=== PATIENT | female | born 1955 | race Caucasian/White ===

== ENCOUNTER 2018-10-16 23:53 | Inpatient (IN) | payer MEDICAID, OTHER ==
[~2018-10-16] VITALS: Ht 157.5 cm; Wt 67.6 kg
[2018-10-16 23:58] VITALS: BP_SYST 123
[2018-10-17] VITALS (12 sets, daily range): BP systolic 106–126
[2018-10-17] MEDS ORDERED: DILTIAZEM HCL 25 MG/5 ML VIAL IVP ONE (01:15)
[2018-10-17 01:44] LABS: BILIRUBIN,URINE NEGATIVE (NEGATIVE); BLOOD, URINE 1+ (NEGATIVE); CLARITY/URINE CLEAR (CLEAR); COLOR,URINE YELLOW (YELLOW); GLUCOSE,URINE NEGATIVE (NEGATIVE); KETONES,URINE NEGATIVE (NEGATIVE); LEUKOCYTE ESTERASE ,URINE 2+ (NEGATIVE); NITRITE, URINE NEGATIVE (NEGATIVE); PH,URINE 6.5 (5.0-8.0); PROTEIN URINE NEGATIVE (NEGATIVE); UROBILINOGEN,URINE 0.2 (0.2-1.0)
[2018-10-17 01:53] LABS: BACTERIA,URINE FEW /HPF (None Seen)
[2018-10-17 02:00] LABS: EOSINOPHILS # (AUTO) 0.1 K/uL (0.0-0.4); MONOCYTES # (AUTO) 0.4 K/uL (0.0-1.0)
[2018-10-17 02:05] LABS: BASOPHILS % (AUTO) 0.5 % (0.0-2.0); EOSINOPHILS % (AUTO) 1.2 % (0.0-4.0); HEMATOCRIT 43.2 % (36-48); LYMPHOCYTES % (AUTO) 39.7 % (20.5-51.5); MEAN CORPUSCULAR HEMOGLOBIN 32 pg (27-31); MEAN CORPUSCULAR HGB CONC 35 % (32-36); MEAN CORPUSCULAR VOLUME 91 fL (79.0-98.0); MONOCYTES % (AUTO) 5.4 % (1.7-9.3); NEUTROPHILS % (AUTO) 53.2 % (40.0-70.0); PLATELET COUNT (AUTO) 273 K/uL (130-430); RED BLOOD CELL COUNT(AUTO) 4.77 MIL/uL (4.2-6.2); RED CELL DISTRIBUTION WIDTH 13.2 % (9.0-15.0); WHITE BLOOD COUNT (AUTO) 7.6 K/uL (4.8-10.8)
[2018-10-17 02:18] LABS: ANION GAP 11 (5-15); CALCIUM 9.9 mg/dL (8.4-11.0); CHLORIDE 109 mmol/L (98-107); CREATININE 0.65 mg/dL (0.55-1.30); GLUCOSE 113 mg/dL (70-99); POTASSIUM 3.6 mmol/L (3.5-5.1); SODIUM SERUM 145 mmol/L (136-145); UREA NITROGEN, BLOOD 14 mg/dL (8-21)
[2018-10-17 02:33] LABS: ALANINE AMINOTRANSFERASE 36 U/L (12-78); ASPARTATE AMINOTRANSFERASE 26 U/L (10-37); THYROID STIMULATING HORMONE 4.07 uIu/mL (0.36-3.74); TOTAL BILIRUBIN 0.4 mg/dL (0.0-1.0)
[2018-10-17 02:34] LABS: GFR AFRICAN AMERICAN 118 mL/min (>90)
[2018-10-17] MEDS ORDERED: SIMV10TA2 PO (03:47)
[2018-10-17] MEDS ORDERED: DILTIAZEM HCL 125 MG in D5W 100 ML IV ONE ×2 (04:15→06:00)
[2018-10-17] MEDS ORDERED: cefTRIAXone 1 GM in D5W 50 ML IV ONE (05:15)
[2018-10-17] MEDS ORDERED: cefTRIAXone 1 GM VIAL ONE (05:32)
[2018-10-17] MEDS ORDERED: DILTIAZEM HCL 125 MG/25 ML VIAL IV ONE (05:33)
[2018-10-17] MEDS ORDERED: NACL 0.9% 1,000 ML IV SCH (05:40)
[2018-10-17] MEDS ORDERED: MORPHINE 2 MG/ML INJ. SYRINGE IVP PRN (05:45)
[2018-10-17] MEDS ORDERED: ALBUTEROL SULFATE 0.083% 2.5 MG/3 ML VIAL.NEB INH PRN (05:45)
[2018-10-17] MEDS ORDERED: LORazepam 2 MG/ML VIAL IVP PRN (05:45)
[2018-10-17] MEDS ORDERED: cefTRIAXone 1 GM IVPB PREMIX 50 ML IV SCH (05:45)
[2018-10-17] MEDS ORDERED: ACETAMINOPHEN 325 MG TABLET PO PRN (05:45)
[2018-10-17] MEDS ORDERED: ONDANSETRON HCL 4 MG/2 ML VIAL IVP PRN (05:45)
[2018-10-17] MEDS ORDERED: COMMUNICATION ORDER XX ONE (08:45)
[2018-10-17] MEDS ORDERED: METOPROLOL SUCCINATE 25 MG TAB.SR.24H (TOPROL XL) PO SCH (09:00)
[2018-10-17] MEDS ORDERED: ASPIRIN 325 MG TABLET PO SCH (09:00)
[2018-10-17] MEDS ORDERED: LEVOFLOXACIN 500 MG/D5W 100 ML IV SCH (09:15)
[2018-10-17 11:12] LABS: BASOPHILS % (AUTO) 0.3 % (0.0-2.0); NEUTROPHILS # (AUTO) 5.9 K/uL (1.8-7.7)
[2018-10-17 11:17] LABS: EOSINOPHILS % (AUTO) 0.2 % (0.0-4.0); HEMATOCRIT 42.7 % (36-48); HEMOGLOBIN 14.3 g/dL (12.0-16.0); LYMPHOCYTES # (AUTO) 1.6 K/uL (1.0-5.5); LYMPHOCYTES % (AUTO) 20.6 % (20.5-51.5); MEAN CORPUSCULAR HEMOGLOBIN 31 pg (27-31); MEAN CORPUSCULAR HGB CONC 33 % (32-36); MEAN CORPUSCULAR VOLUME 92 fL (79.0-98.0); MONOCYTES # (AUTO) 0.3 K/uL (0.0-1.0); MONOCYTES % (AUTO) 4.3 % (1.7-9.3); NEUTROPHILS % (AUTO) 74.6 % (40.0-70.0); PLATELET COUNT (AUTO) 277 K/uL (130-430); RED BLOOD CELL COUNT(AUTO) 4.67 MIL/uL (4.2-6.2); RED CELL DISTRIBUTION WIDTH 13.8 % (9.0-15.0); WHITE BLOOD COUNT (AUTO) 7.9 K/uL (4.8-10.8)
[2018-10-17 11:34] LABS: ANION GAP 6 (5-15); CALCIUM 9.2 mg/dL (8.4-11.0); CHLORIDE 109 mmol/L (98-107); CREATININE 0.61 mg/dL (0.55-1.30); GLUCOSE 112 mg/dL (70-99); POTASSIUM 4.1 mmol/L (3.5-5.1); SODIUM SERUM 145 mmol/L (136-145); UREA NITROGEN, BLOOD 11 mg/dL (8-21)
[2018-10-17 11:41] LABS: GFR AFRICAN AMERICAN 127 mL/min (>90)
[2018-10-17 11:42] LABS: ALANINE AMINOTRANSFERASE 31 U/L (12-78); ALBUMIN 3.6 g/dL (3.4-4.8); ASPARTATE AMINOTRANSFERASE 23 U/L (10-37); TOTAL BILIRUBIN 0.5 mg/dL (0.0-1.0)
[2018-10-17] MEDS ORDERED: SIMVASTATIN 10 MG TABLET PO SCH (21:00)
== END 2018-10-17 16:38 | disposition home or self-care (01) | DRG 309 ==
LOC: SED 23:53 → SIC 10-17 05:40
PROVIDERS: ADMIT Internal Medicine Hospice and Palliative Medicine; ATTEND Internal Medicine Hospice and Palliative Medicine
DX: I48.0 Paroxysmal atrial fibrillation (principal); N39.0 Urinary tract infection, site not specified; E78.5 Hyperlipidemia, unspecified; Z79.899 Other long term (current) drug therapy; Z82.49 Family history of ischemic heart disease and other diseases of the circulatory system; Z88.0 Allergy status to penicillin; Z88.1 Allergy status to other antibiotic agents
CPT/HCPCS: 36415; 80053; 81000-TC; 84443-TC; 84484; 85025; 87081; 87086; 93005; 93306; 96374; 99285; J0696; J1956; J3490; J7030

== ENCOUNTER 2021-03-27 10:48 | Emergency (ER) | payer OTHER, MEDICARE ==
[~2021-03-27] VITALS: Ht 162.6 cm; Wt 61.2 kg
[~2021-03-27 10:48] MED LIST: SIMV10TA2 PO
[2021-03-27 11:24] VITALS: BP_SYST 124
[2021-03-27 11:55] LABS: BASOPHILS % (AUTO) 0.4 % (0.0-2.0); EOSINOPHILS % (AUTO) 0.4 % (0.0-4.0); HEMATOCRIT 37.9 % (36-48); HEMOGLOBIN 12.7 g/dL (12.0-16.0); LYMPHOCYTES # (AUTO) 1.7 K/uL (1.0-5.5); LYMPHOCYTES % (AUTO) 27.6 % (20.5-51.5); MEAN CORPUSCULAR HEMOGLOBIN 30 pg (27-31); MEAN CORPUSCULAR HGB CONC 34 % (32-36); MEAN CORPUSCULAR VOLUME 90 fL (79.0-98.0); MONOCYTES # (AUTO) 0.3 K/uL (0.0-1.0); MONOCYTES % (AUTO) 4.2 % (1.7-9.3); NEUTROPHILS # (AUTO) 4.2 K/uL (1.8-7.7); NEUTROPHILS % (AUTO) 67.4 % (40.0-70.0); PLATELET COUNT (AUTO) 226 K/uL (130-430); RED BLOOD CELL COUNT(AUTO) 4.23 MIL/uL (4.2-6.2); RED CELL DISTRIBUTION WIDTH 13.4 % (9.0-15.0); WHITE BLOOD COUNT (AUTO) 6.3 K/uL (4.8-10.8)
[2021-03-27 12:22] LABS: CALCIUM 9.2 mg/dL (8.4-11.0); CREATININE 0.62 mg/dL (0.55-1.30)
[2021-03-27 12:30] LABS: ALBUMIN 3.9 g/dL (3.4-4.8); TOTAL BILIRUBIN 0.3 mg/dL (0.0-1.0)
[2021-03-27 13:21] VITALS: BP_SYST 120
[2021-03-27] MEDS ORDERED: IBUPROFEN 600 MG TABLET ONE (19:34)
== END 2021-03-27 13:20 | disposition home or self-care (01) ==
LOC: SED 10:48
DX: S09.90XA Unspecified injury of head, initial encounter (principal); Z88.0 Allergy status to penicillin; Z79.899 Other long term (current) drug therapy; W01.10XA Fall on same level from slipping, tripping and stumbling with subsequent striking against unspecified object, initial encounter; Y93.89 Activity, other specified; Y92.89 Other specified places as the place of occurrence of the external cause; Y99.8 Other external cause status
CPT/HCPCS: 36415; 70450-TC; 76376; 80053; 82550; 84484; 85025; 99284

== ENCOUNTER 2021-07-23 15:05 | Emergency (ER) | payer OTHER, MEDICARE ==
[~2021-07-23] VITALS: Ht 167.6 cm; Wt 66.2 kg
--- NOTE | 2021-07-23 15:20 | NUR ---
Patient to ER bed 07 to gown for evaluation. Side rails up.
--- NOTE | 2021-07-23 15:22 | NUR ---
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 Patient also reports dysuria. Pain is sharp and constant 6/10. Denies any nuasea or vomiting. no other complaints/injuries per patient or as noted. no acute distress noted at this time
--- NOTE | 2021-07-23 15:25 | NUR ---
ER Dr.DELA SHERIFF at bedside examining patient.
[2021-07-23 15:30] VITALS: BP_SYST 140
[2021-07-23] MEDS ORDERED: MORPHINE 4 MG INJ. 4 MG/ML VIAL IVP ONE (15:30)
[2021-07-23] MEDS ORDERED: NACL 0.9% 1,000 ML IV ONE (15:30)
[2021-07-23] MEDS ORDERED: cefTRIAXone 1 GM in D5W 50 ML IV ONE (15:30)
[2021-07-23] MEDS ORDERED: ONDANSETRON HCL 4 MG/2 ML VIAL IVP ONE (15:30)
--- NOTE | 2021-07-23 15:30 | NUR ---
# 20 gauge angiocath placed to LAC. Use of asceptic technique. Opsite placed over site. Blood return noted. Blood AND CULTURES for lab drawn from site. Flushed with 10 cc of normal saline. No evidence of infiltration noted. Patient tolerated well.
[2021-07-23] MEDS ORDERED: cefTRIAXone 1 GM VIAL ONE (15:45)
--- NOTE | 2021-07-23 15:52 | NUR ---
PATIENT MEDICATED PER MD ORDERS. PATIENT STATES SHE IS NOT IN PAIN AT THIS TIME AND WOULD LIKE TO WAIT FOR MORPHINE AND ZOFRAN MEDICATION UNTIL NEEDED.
[2021-07-23 15:57] LABS: BASOPHILS # (AUTO) 0.1 K/uL (0.0-0.2); BASOPHILS % (AUTO) 1.3 % (0.0-2.0); EOSINOPHILS % (AUTO) 0.4 % (0.0-4.0); HEMATOCRIT 41.2 % (36-48); HEMOGLOBIN 13.8 g/dL (12.0-16.0); LYMPHOCYTES # (AUTO) 3.6 K/uL (1.0-5.5); MEAN CORPUSCULAR HEMOGLOBIN 30 pg (27-31); MEAN CORPUSCULAR HGB CONC 33 % (32-36); MEAN CORPUSCULAR VOLUME 91 fL (79.0-98.0); MONOCYTES # (AUTO) 0.4 K/uL (0.0-1.0); MONOCYTES % (AUTO) 4.1 % (1.7-9.3); NEUTROPHILS # (AUTO) 4.7 K/uL (1.8-7.7); NEUTROPHILS % (AUTO) 53.2 % (40.0-70.0); PLATELET COUNT (AUTO) 298 K/uL (130-430); RED BLOOD CELL COUNT(AUTO) 4.56 MIL/uL (4.2-6.2); RED CELL DISTRIBUTION WIDTH 13.7 % (9.0-15.0); WHITE BLOOD COUNT (AUTO) 8.7 K/uL (4.8-10.8)
[2021-07-23 16:03] LABS: CALCIUM 9.7 mg/dL (8.4-11.0); CREATININE 1.13 mg/dL (0.55-1.30); POTASSIUM 3.7 mmol/L (3.5-5.1)
--- NOTE | 2021-07-23 16:08 | NUR ---
PATIENT OFF UNIT TO CT SCAN IN WHEELCHAIR WITH SARTHAK WAGON PERSON
[2021-07-23 16:09] LABS: TOTAL BILIRUBIN 0.3 mg/dL (0.0-1.0)
--- NOTE | 2021-07-23 16:30 | NUR ---
md at bedside for reassessment. patient reports feeling better.
[2021-07-23 16:51] LABS: BILIRUBIN,URINE NEGATIVE (NEGATIVE); BLOOD, URINE 3+ (NEGATIVE); CLARITY/URINE CLEAR (CLEAR); COLOR,URINE YELLOW (YELLOW); GLUCOSE,URINE NEGATIVE (NEGATIVE); KETONES,URINE TRACE (NEGATIVE); LEUKOCYTE ESTERASE ,URINE TRACE (NEGATIVE); NITRITE, URINE NEGATIVE (NEGATIVE); PH,URINE 7.5 (5.0-8.0); PROTEIN URINE 1+ (NEGATIVE); UROBILINOGEN,URINE 0.2 (0.2-1.0)
[2021-07-23] MEDS ORDERED: NITR-85 PO (16:53)
[2021-07-23] MEDS ORDERED: HYDR-3917 PO (16:54)
[2021-07-23] MEDS ORDERED: ONDA-8 TL (16:56)
[2021-07-23 16:57] LABS: BACTERIA,URINE FEW /HPF (None Seen); MUCUS,URINE None Seen /LPF (None Seen); RBC,URINE 50-80 /HPF (0-3)
--- NOTE | 2021-07-23 17:24 | NUR ---
Patient given written and verbal discharge instructions and verbalizes understanding. ER MD discussed with patient the results and treatment provided. Patient in stable condition. ID arm band removed. IV catheter removed intact and dressing applied, no active bleeding. Rx of norco, macrobid, zofran given. Patient educated on pain management and to follow up with PMD. Pain Scale 0/10 Opportunity for questions provided and answered. Medication side effect fact sheet provided.
[2021-07-23 17:26] VITALS: BP_SYST 122
== END 2021-07-23 17:24 | disposition home or self-care (01) ==
LOC: SED 15:05
DX: N20.0 Calculus of kidney (principal); N39.0 Urinary tract infection, site not specified; K80.80 Other cholelithiasis without obstruction; Z88.0 Allergy status to penicillin
CPT/HCPCS: 36415; 74176; 76376; 80053; 81000; 82962; 85025; 87040; 96365; 99284; J0696; J2405; J7060; J2270

== ENCOUNTER 2022-02-21 17:40 | Emergency (ER) | payer OTHER, MEDICARE ==
[~2022-02-21] VITALS: Ht 157.5 cm; Wt 62.6 kg
[2022-02-21 17:40] VITALS: BP_SYST 133
[~2022-02-21 17:40] MED LIST changes: +HYDR-3917 PO; +NITR-85 PO; +ONDA-8 TL; +SIMV-341 PO; -SIMV10TA2 PO
[2022-02-21 21:15] VITALS: BP_SYST 133
== END 2022-02-21 21:15 | disposition home or self-care (01) ==
LOC: SED 17:40
DX: H53.8 Other visual disturbances (principal); Z88.0 Allergy status to penicillin; Z79.899 Other long term (current) drug therapy
CPT/HCPCS: 70450-TC; 76376; 99284